=== PATIENT | female | born 1975 | race Caucasian/White ===

== ENCOUNTER 2018-02-15 15:58 | Emergency (ER) | payer OTHER, MEDICAID ==
[2018-02-15] MEDS ORDERED: LORazepam 1 MG TAB PO ONE (16:13)
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
[2018-02-15 17:35] VITALS: BP 110/63
== END 2018-02-15 17:39 | disposition home or self-care (01) ==
LOC: EDUNIT#
DX: S16.1XXA Strain of muscle, fascia and tendon at neck level, initial encounter (principal); S29.012A Strain of muscle and tendon of back wall of thorax, initial encounter; V89.2XXA Person injured in unspecified motor-vehicle accident, traffic, initial encounter; Y92.410 Unspecified street and highway as the place of occurrence of the external cause